=== PATIENT | male | born 2000 | race Caucasian/White ===

== ENCOUNTER 2022-03-14 10:06 | Emergency (ER) | payer OTHER, SELFPAY ==
--- NOTE | ~2022-03-14 | XR_ITS ---
EXAMINATION: XR chest 2V DATE: 03/14/2022 11:32 INDICATION: Wheezing. Cough and fever. TECHNIQUE: Frontal and lateral views of the chest were obtained. COMPARISON: None. FINDINGS: There is no pneumonia, pleural effusion, or pneumothorax. The heart size is normal. IMPRESSION: 1. No acute cardiopulmonary disease. Reviewed, dictated and finalized at location A. [facility]
[2022-03-14 10:53] VITALS: BP 129/80; PULSE 93; RESP 14; TEMP 37.1; O2SAT 98
--- NOTE | 2022-03-14 11:22 | ED.URI ---
HPI - URI/Sore Throat General Chief Complaint: Upper Respiratory Infection Stated Complaint: fever,chest congestion Source: patient and family Mode of arrival: ambulatory Limitations: no limitations History of Present Illness HPI Narrative: 21-year-old male presents to [facility] complains of body aches, chills, low-grade fevers up to 100.3, nonproductive cough, chest congestion, intermittent shortness of breath and wheezing for the past 2-3 days. Patient reports that he has a history of seasonal allergies and takes [id number] allergy medication and Flonase daily. Patient did travel here from [place]. Patient is a nonsmoker. Patient denies sick contacts. Patient denies nausea vomiting or diarrhea. MD elicited complaint: fever, cough, nasal congestion and other (chest congestion ) Onset (ago): day(s) (2) Severity: mild Able to tolerate fluids by mouth: Yes Related Data Home Medications Medication Instructions Recorded Confirmed escitalopram oxalate 20 mg tablet 20 mg PO DAILY 03/14/22 03/14/22 levocetirizine 5 mg tablet 5 mg PO DAILY 03/14/22 03/14/22 Allergies Allergy/AdvReac Type Severity Reaction Status Date / Time No Known Allergies Allergy Verified 03/14/22 11:04 Review of Systems Constitutional: Constitutional: Reports chills, Denies fatigue, Reports fever(s) and Denies weakness ENT: Denies dizziness Respiratory: Respiratory: Denies chest congestion, Reports cough, Reports dyspnea and Reports wheezing Gastrointestinal: Gastrointestinal: Denies abdominal pain, Denies diarrhea, Denies nausea and Denies vomiting Integumentary/Breasts: Skin/Breast: Denies rash Allergic/Immunologic: Allergic/Immunologic: Denies lip swelling, Denies throat swelling, Denies tongue swelling and Denies wheezing PMFSH Social History Social History (Updated 03/14/22 @ 11:25 by Bella Thakkar, CHRISTI) Smoking status: Never smoker Comments At time of signature, I agree with nursing past medical, surgical, social and family history. There is no relevant family history pertinent to the presenting complaint. Exam Const: General: healthy appearing, no acute distress and alert Nutritional Appearance: well nourished Orientation/consciousness: patient oriented x3 Limitations: no limitations HENMT: Ears: external ears normal and TM's normal bilaterally Face/Nose/Sinus: Normal external nose present and Normal nares present Face and sinus: normal facial exam and sinuses nontender Throat: posterior oropharynx normal Neck: Neck: normal visual inspection Resp: Effort & Inspection: normal respiratory effort and not labored Auscultation: clear to auscultation bilaterally, no crackles, no rales and no rhonchi Cardio: Rate: regular rate Rhythm: regular rhythm Heart sounds: no murmurs Skin: General skin exam: normal color Rashes: no rashes Wounds: no wounds Neuro: General: patient oriented x3 Speech: normal speech Gait exam (Neuro): Normal gait present Psych: Affect: normal affect Attitude: cooperative Course Course Level of Care: Express Care Visit Vital Signs Vital signs: Vital Signs Temperature 37.1 C 03/14/22 10:53 Pulse Rate 93 03/14/22 10:53 Respiratory Rate 14 03/14/22 10:53 Blood Pressure 129/80 03/14/22 10:53 Pulse Oximetry 98 03/14/22 10:53 Oxygen Delivery Room Air 03/14/22 10:53 Temperature 37.1 C 03/14/22 10:53 Pulse Rate 93 03/14/22 10:53 Respiratory Rate 14 03/14/22 10:53 Blood Pressure 129/80 03/14/22 10:53 Pulse Oximetry 98 03/14/22 10:53 Oxygen Delivery Room Air 03/14/22 10:53 MDM - URI/Sore Throat MDM Narrative Medical decision making narrative: Discussed negative influenza and chest x-ray results with patient. Patient agrees to continue allergy medication daily. Patient agrees to follow-up with primary care provider and proceed to the emergency room if symptoms worsen. Differential Diagnosis Differential diagnosis: Likely otitis media, sinus
== END 2022-03-14 11:49 | disposition home or self-care (01) ==
PROVIDERS: Emergency Provider Nurse Practitioner Family
DX: J06.9 Acute upper respiratory infection, unspecified (principal)
CPT/HCPCS: 71046; 87804; 99213; G0463